=== PATIENT | female | born 1945 | race Caucasian/White ===

== ENCOUNTER 2021-08-09 12:26 | Emergency (ER) | payer MEDICARE ==
[2021-08-09] MEDS ORDERED: ORPHENADRINE 30 MG/ML 2 ML VIAL IVP STA (12:59)
--- NOTE | 2021-08-09 14:19 | XR ---
EXAMINATION TYPE: XR cervical spine comp DATE OF EXAM: 08/09/2021 CLINICAL HISTORY: pain COMPARISON: NONE TECHNIQUE: Frontal, lateral, oblique, swimmers, and open mouth view of the cervical spine are obtaine d. FINDINGS: The cervical spine is visualized in its entirety from C1 thru the top of T1 level. It is s atisfactory in alignment without evidence of acute fracture or dislocation. The pre-vertebral soft t issue appears within normal limits. Moderate multilevel degenerative disc space narrowing. Large ante rior spurs identified. The C1-C2 articulation is unremarkable on the open mouth view. The oblique im ages are within normal limits. IMPRESSION: No acute fracture or dislocation is seen in the cervical spine.ICD 10 NO FRACTURE, INITI AL EVALUATION
--- NOTE | 2021-08-09 15:07 | ED ---
Neck Injury/Pain HPI - General Chief Complaint: Neck Pain/Injury Stated Complaint: Pinch nerve, neck & back pain Time Seen by Provider: 08/09/21 12:39 Source: patient, RN notes reviewed Mode of arrival: ambulatory Limitations: no limitations - History of Present Illness Initial Comments: Patient is a 76-year-old female that presents to the emergency department complaining of neck pain and tightness. Patient notes that she's been sick for the past several weeks. Patient notes that tested positive for Covid recently. Patient denied any injury or trauma. Patient was otherwise well- appearing in no apparent distress. She denied any chest pain shortness breath headache nausea vomiting diarrhea constipation fever fatigue chills. - Related Data Previous Rx's Medication Instructions Recorded Baclofen 5 mg PO TID 5 Days #15 tablet 08/09/21 Allergies Allergy/AdvReac Type Severity Reaction Status Date / Time No Known Allergies Allergy Verified 08/09/21 12:35 Review of Systems ROS Statement: Those systems with pertinent positive or pertinent negative responses have been documented in the HPI. ROS Other: All systems not noted in ROS Statement are negative. Past Medical History Past Medical History: No Reported History History of Any Multi-Drug Resistant Organisms: None Reported Past Surgical History: No Surgical Hx Reported Past Anesthesia/Blood Transfusion Reactions: No Reported Reaction Past Psychological History: No Psychological Hx Reported Smoking Status: Never smoker Past Alcohol Use History: None Reported Past Drug Use History: None Reported General Exam Limitations: no limitations General appearance: alert, in no apparent distress Head exam: Present: atraumatic, normocephalic, normal inspection Eye exam: Present: normal appearance, PERRL, EOMI. Absent: scleral icterus, conjunctival injection, periorbital swelling ENT exam: Present: normal exam, mucous membranes moist Neck exam: Present: normal inspection, full ROM (Secondary to muscle tightness). Absent: tenderness, lymphadenopathy Respiratory exam: Present: normal lung sounds bilaterally. Absent: respiratory distress, wheezes, rales, rhonchi, stridor Cardiovascular Exam: Present: regular rate, normal rhythm, normal heart sounds. Absent: systolic murmur, diastolic murmur, rubs, gallop, clicks GI/Abdominal exam: Present: soft, normal bowel sounds. Absent: distended, tenderness, guarding, rebound, rigid Extremities exam: Present: normal inspection, full ROM, normal capillary refill. Absent: tenderness, pedal edema, joint swelling, calf tenderness Neurological exam: Present: alert, oriented X3 Psychiatric exam: Present: normal affect, normal mood Skin exam: Present: warm, dry, intact, normal color. Absent: rash Course Vital Signs 08/09/21 12:33 Temperature 98.7 F Pulse Rate 79 Respiratory 20 Rate Blood Pressure 147/75 O2 Sat by Pulse 97 Oximetry Medical Decision Making - Medical Decision Making 76-year-old female complaining of neck tightness. Covid test, 40 mg Norflex, cervical spine x-ray ordered. Covid test negative. Cervical spine x-ray negative for any acute fractures dislocations. Case discussed with Dr. Epps, patient discharge home. Patient most likely expressing torticollis. - Lab Data Lab Results 08/09/21 Range/Units 13:23 Coronavirus (PCR) Not Detected (Not Detectd) Disposition Clinical Impression: Torticollis Disposition: HOME SELF-CARE Condition: Stable Instructions (If sedation given, give patient instructions): Cervical Strain (ED) Additional Instructions: Please return to the Emergency Department if symptoms worsen or any other concerns. Follow-up with primary care 1-2 days. Take muscle relaxers as prescribed. Is patient prescribed a controlled substance at d/c from ED?: No Referrals: Ruddy Mondragon MD [Primary Care Provider] - 1-2 days Time of Disposition: 15:07
[2021-08-09 15:29] VITALS: BP 138/71; PULSE 65; RESP 16; TEMP 98.2
== END 2021-08-09 15:28 | disposition home or self-care (01) ==
LOC: EC 12:26
DX: M43.6 Torticollis (principal); Z20.822 Contact with and (suspected) exposure to COVID-19
CPT/HCPCS: 87635; 72050; 99283; 96374; J2360

== ENCOUNTER → 2023-11-21 | Outpatient (CLI) | payer MEDICARE ==
--- NOTE | 2023-11-21 09:41 | MM ---
Reason for Exam: Additional evaluation requested from prior study. Last screening mammogram was performed less than 1 month ago. Patient History: Menarche at age 14. First Full-Term at age 25. Postmenopausal. Risk Values: Janeth 5 year model risk: 1.6%. NCI Lifetime model risk: 3.2%. Prior Study Comparison: 11/10/2023 Bilateral MG 3D screening mammo w/cad, [facility]. Tissue Density: Left: The breasts are heterogeneously dense, which may obscure small masses. Findings: Analyzed By CAD. The questioned area of medial focal asymmetry persists on the spot compression CC view though becomes less defined on the tomographic slices. No corresponding abnormality on the spot 3-D MLO or 3-D lateral views. A focal island of fibroglandular tissue is suspected and six-month follow-up is recommended. Overall Assessment: Probably benign, BI-RAD 3 Management: Diagnostic Mammogram of the left breast in 6 months. . Results were given to the patient verbally at the time of exam. Patient should continue monthly self-breast exams. A clinical breast exam by your physician is recommended on an annual basis. This exam should not preclude additional follow-up of suspicious palpable abnormalities. Note on Janeth scores and lifetime risk: 1. A Janeth score greater than 3% is considered moderate risk. If this is the case, consider specialist referral to assess eligibility for a risk reducing agent. 2. If overall lifetime risk for the development of breast cancer is 20% or higher, the patient may qualify for future screening with alternating mammogram and breast MRI. Electronically signed and approved by: Dottie Moody M.D. Radiologist
== END | disposition home or self-care (01) ==
LOC: RADMAMWWP 09:03
PROVIDERS: ATTEND Family Medicine
DX: R92.332 Mammographic heterogeneous density, left breast (principal); Z78.0 Asymptomatic menopausal state
CPT/HCPCS: 77065; G0279; 77061